=== PATIENT | female | born 1980 | race Asian ===

== ENCOUNTER 2019-08-19 15:03 | Emergency (ER) | payer OTHER ==
[~2019-08-19] VITALS: Ht 162.6 cm; Wt 67.6 kg
--- NOTE | 2019-08-19 15:25 | NUR ---
ED Nurse Note: Pt walked in from home/work d/t low back pain. Pt having difficulty walking. 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 Pt denies fall/nausea/vomiting. Respirations even and unlabored on room air. Vitals stable as documented.
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
[2019-08-19 15:31] VITALS: BP 130/79
[2019-08-19] MEDS ORDERED: traMADol 50mg tab ORAL ONE (16:00)
--- NOTE | 2019-08-19 16:11 | NUR ---
ED Nurse Note: pt in radiology
--- NOTE | 2019-08-19 17:33 | Diagnostic Imaging Report ---
Indications: 10 out of 10 in severity low back pain with acute onset earlier this morning Technique: Spiral acquisitions obtained through the lumbar spine. Multiplanar reconstructions were generated. No IV contrast utilized. Total dose length product 272 mGycm. CTDIvol(s) 8 mGy. Dose reduction achieved using automated exposure control Comparison: none Findings: Bony alignment is normal. Vertebral body heights are preserved. The disc spaces are preserved. No acute fractures. No dislocations. At L4-5, there is circumferential annular bulge. This is not significantly narrow the spinal canal or compromise the neural foramina. At L5-S1, there is circumferential annular bulge. This is not significantly compromise the spinal canal or the neural foramina. Included extra spinal soft tissues are unremarkable for the presence of multiple small calculi within the bilateral renal collecting systems. Impression: No acute bony trauma Minimal degenerative changes as detailed above without evidence of significant neural impingement Nonobstructive bilateral intrarenal calculi This agrees with the preliminary interpretation provided overnight by [facility]erad[facility] service. The CT scanner at [facility] is accredited by the [employer] and the scans are performed using protocols designed to limit radiation exposure to as low as reasonably achievable to attain images of sufficient resolution adequate for diagnostic evaluation.
[2019-08-19] MEDS ORDERED: IBUPROFEN600 MG ORAL (17:55)
[2019-08-19] MEDS ORDERED: LIDODERM700 M1 TOPIC (17:55)
[2019-08-19] MEDS ORDERED: ROBAXIN-750750 MG PO (17:55)
[2019-08-19 18:00] VITALS: BP 129/84
--- NOTE | 2019-08-19 18:00 | NUR ---
ER DISCHARGE NOTE: Patient is cleared to be discharged per ERMD, pt is aox4, on room air, with stable vital signs as documented. pt was given dc and prescription instructions and was able to verbalize understanding, pt id band removed. pt is able to ambulate with steady gait. pt took all belongings.
== END 2019-08-19 18:00 | disposition home or self-care (01) ==
LOC: EMR 15:45
DX: S39.012A Strain of muscle, fascia and tendon of lower back, initial encounter (principal); X50.1XXA Overexertion from prolonged static or awkward postures, initial encounter; Y92.9 Unspecified place or not applicable; Y99.0 Civilian activity done for income or pay; N20.0 Calculus of kidney
CPT/HCPCS: 72131; 99284